=== PATIENT | female | born 1995 | race Caucasian/White ===

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

== ENCOUNTER 2017-02-14 21:03 | Observation (INO) | payer MEDICAID ==
[2017-02-14] MEDS ORDERED: NIFEdipine 30 MG Tab.ER PO ONE (21:56)
--- NOTE | 2017-02-14 21:56 | PCM.LDHP ---
L&D History of Present Illness - General Date of Service: 02/14/17 Admit Problem/Dx: Patient Status Order with Admit Dx/Problem 02/14/17 21:43 Patient Status [ADT] Routine Admission Diagnosis/Problem Admission Diagnosis/Problem Source of Information: Patient History Limitations: Reports: No Limitations - History of Present Illness Introduction:: 21-year-old at 35w3d presents with increased contractions for the past 2 hours. She states she had some cramping last night. After work today, the contractions were stronger and radiated to her back. Baby has been active. No vaginal bleeding or leaking of fluid. - Related Data Allergies/Adverse Reactions: Allergies Allergy/AdvReac Type Severity Reaction Status Date / Time No Known Allergies Allergy Verified 02/14/17 21:22 Home Medications: Home Meds Ferrous Sulfate [Iron] 325 mg PO DAILY 02/14/17 [History] #103/Iron Fumarate/Fa [ ] 1 each PO DAILY MDD 1 [History] Past Medical History HEENT History: Reports: None Cardiovascular History: Reports: None, Other (See Below) Other Cardiovascular History: had cardiac surgery for repair of " 2 holes in heart" when she was a child. 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: Musculoskeletal History: Reports: None Neurological History: Reports: None Psychiatric History: Reports: Anxiety, Depression Endocrine/Metabolic History: Reports: None Hematologic History: Reports: None Immunologic History: Reports: None Oncologic (Cancer) History: Reports: None Dermatologic History: Reports: None - Infectious Disease History Infectious Disease History: Reports: None - Past Surgical History Head Surgeries/Procedures: Reports: None Social & Family History - Family History Family Medical History: Noncontributory Respiratory: Reports: Other (See Below) (Lung cancer in paternal grandfather ( smoker)) - Tobacco Use Smoking Status *Q: Former Smoker Years of Tobacco use: 6 Packs/Tins Daily: 0.5 Used Tobacco, but Quit: Yes Month Tobacco Last Used: 03 - Caffeine Use Caffeine Use: Reports: Coffee, Energy Drinks, Soda, Tea - Recreational Drug Use Recreational Drug Use: No - Sexual History Sexual History: Reports: Sexually Active, Single Partner - Living Situation & Occupation Living situation: Reports: with Family H&P Review of Systems - Review of Systems: Review Of Systems: See Below General: Reports: No Symptoms HEENT: Reports: No Symptoms Pulmonary: Reports: No Symptoms Cardiovascular: Reports: No Symptoms Gastrointestinal: Reports: No Symptoms Genitourinary: Reports: No Symptoms Musculoskeletal: Reports: Back Pain Skin: Reports: No Symptoms Psychiatric: Reports: No Symptoms Neurological: Reports: No Symptoms Hematologic/Lymphatic: Reports: No Symptoms Immunologic: Reports: No Symptoms L&D Exam - Exam Exam: See Below - Vital Signs Vital Signs: Last Vital Signs Temp Pulse 81 02/14/17 21:22 Resp BP 133/86 02/14/17 21:22 Pulse Ox Weight: 72.575 kg - OB Specific Contraction Duration (sec): 30 Contraction Frequency (min): 3 Contraction Intensity: Moderate Movement: Active Heart Tones: Present Heart Tones per Min: 145 Heart Rate (FHR) Variability: Absent; Amplitude Undetectable Presentation: Vertex - Barrera Score Barrera Score Cervix Position: Posterior Barrera Score Consistency: Soft Barrera Score Effacement: 51-70% Barrera Score Dilation: 1-2 cm Barrera Score Infant's Station: -2 Barrera Score Total: 6 - Exam General: Alert, Oriented HEENT: Conjunctiva Clear, EACs Clear Lungs: Clear to Auscultation, Normal Respiratory Effort Cardiovascular: Regular Rate, Regular Rhythm Genitourinary: Vaginal discharge (Thick, white) Extremities: No Pedal Edema Skin: Warm, Dry, Intact - Problem List (1) contractions SNOMED Code(s): 869893563 ICD Code: O47.9 - FALSE LABOR, UNSPECIFIED Status: Acute Current Visit: Yes (2) UTI in SNOMED Code(s): 144419472 ICD Code: O23.40 - UNSP INFECTION OF URINARY TRACT IN , UNSP TRIMESTER Status: Acute Current Visit: Yes (3) Bacterial vaginosis SNOMED Code(s): 964315940 ICD Code: N76.0 - ACUTE VAGINITIS; B96.89 - OTH BACTERIAL AGENTS THE CAUSE OF DISEASES CLASSD ELSWHR Status: Acute Current Visit: Yes Problem List Initiated/Reviewed/Updated: Yes Orders Last 24hrs: Active Orders 24 hr Category Date Time Status Patient Status [ADT] Routine ADT 02/14/17 21:43 Ordered Monitoring [RC] CONTINUOUS Care 02/14/17 21:44 Ordered Up ad Мария [RC] ASDIRECTED Care 02/14/17 21:44 Ordered Vital Signs [RC] PER UNIT ROUTINE Care 02/14/17 21:43 Ordered Regular Diet [DIET] Diet 02/14/17 Breakfast Ordered CULTURE GROUP B STREP [RM] Routine Lab 02/14/17 21:46 Ordered UA W/MICROSCOPIC [URIN] Stat Lab 02/14/17 21:43 Ordered WET PREP [MYC] Routine Lab 02/14/17 21:46 Ordered Lactated Ringers [Ringers, Lactated] 1,000 ml Med 02/14/17 21:45 Ordered IV .BOLUS Resuscitation Status Routine Resus Stat 02/14/17 21:43 Ordered Medication Orders Lactated Ringer's (Ringers, Lactated) 1,000 mls @ 500 mls/hr IV .BOLUS LUTHER Assessment/Plan Comment:: 21-year-old at 35w3d with contractions, exacerbated by UTI and BV infections 1. Will admit for observation overnight. 2. 30 mg Nifedipine once. 20 mg nifedipine every 4 hours if BP >110/70 3. Augmentin every 12 hours for UTI 4. Flagyl 500 mg BID for 7 days 5. Reassess cervix in 4 hours or sooner if contractions increase Tawanna Fox MD
[2017-02-14] MEDS ORDERED: NIFEdipine 10 MG Cap PO ONE (22:01)
[2017-02-14] MEDS: metroNIDAZOLE 250 MG Tab PO SCH (22:43)
[2017-02-14] MEDS: Amoxicillin/Clavulanate K 875-125 MG Tab PO SCH (22:43)
[2017-02-14] MEDS: Lactated Ringers 1,000 ML IV SCH (22:45)
[2017-02-15] MEDS: NIFEdipine 10 MG Cap PO SCH ×3 (03:07→08:19)
[2017-02-15] MEDS: Lactated Ringers 1,000 ML IV SCH (06:14)
[2017-02-15] MEDS: Amoxicillin/Clavulanate K 875-125 MG Tab PO SCH (09:01)
[2017-02-15] MEDS: metroNIDAZOLE 250 MG Tab PO SCH (09:01)
--- NOTE | 2017-02-15 11:39 | PCM.DCSUM1 ---
Discharge Summary - Hospital Course Free Text/Narrative:: Admitted last night with contractions, UTI and BV - Discharge Data Discharge Date: 02/15/17 Discharge Disposition: Home, Self-Care 01 Condition: Good - Discharge Diagnosis/Problem(s) (1) contractions SNOMED Code(s): 023784279 ICD Code: O47.9 - FALSE LABOR, UNSPECIFIED Status: Acute Current Visit: Yes (2) UTI in SNOMED Code(s): 191968147 ICD Code: O23.40 - UNSP INFECTION OF URINARY TRACT IN , UNSP TRIMESTER Status: Acute Current Visit: Yes (3) Bacterial vaginosis SNOMED Code(s): 660950677 ICD Code: N76.0 - ACUTE VAGINITIS; B96.89 - OTH BACTERIAL AGENTS THE CAUSE OF DISEASES CLASSD ELSWHR Status: Acute Current Visit: Yes - Patient Summary/Data Operative Procedure(s) Performed: None Complications: None Consults: None Labs Pending at D/C: Urine culture Recommended Follow-up Testing/Procedures: None Planned Operative Procedure(s) after DC: None Hospital Course: See subjective section - Discharge Plan Home Medications: Home Meds Ferrous Sulfate [Iron] 325 mg PO DAILY 02/14/17 [History] #103/Iron Fumarate/Fa [ ] 1 each PO DAILY MDD 1 [History] Patient Handouts: Labor Information, [id number]-[id number], Amoxicillin; Clavulanic Acid tablets, Bacterial Vaginosis, Cdcy-yr-Bitx, Nifedipine capsules , Metronidazole tablets or capsules - Discharge Summary/Plan Comment DC Time >30 min.: No Discharge Summary/Plan Comment: Discharge home today. Continue Flagyl and Augmentin for 7 days. Will also prescribe nifedipine 10 mg every 6 hours for 8 days. Follow-up next week as previously scheduled. Reasons to return sooner were reviewed with the patient. Tawanna Fox MD - General Info Date of Service: 02/15/17 Subjective Update: Contractions have improved significantly. Woke up 1 time from pain. TOCO still shows irritability with irregular contractions. Patient did not receive nifedipine overnight due to lower BP readings. Will receive a dose this AM. No vaginal bleeding. Baby has been active. Functional Status: Reports: Tolerating Diet, Ambulating, Urinating. Denies: New Symptoms - Review of Systems General: Reports: No Symptoms HEENT: Reports: No Symptoms Pulmonary: Reports: No Symptoms Cardiovascular: Reports: No Symptoms Gastrointestinal: Reports: No Symptoms Genitourinary: Reports: No Symptoms Musculoskeletal: Reports: No Symptoms Skin: Reports: No Symptoms Neurological: Reports: No Symptoms - Patient Data Vitals - Most Recent: Last Vital Signs Temp 36.8 C 02/15/17 02:30 Pulse 80 02/15/17 06:30 Resp 16 02/15/17 01:00 BP 110/63 02/15/17 06:30 Pulse Ox Weight - Most Recent: 72.575 kg Lab Results - Last 24 hrs: Laboratory Results - last 24 hr 02/14/17 Range/Units 21:25 Urine Color Yellow (YELLOW) Urine Appearance Slightly cloudy (CLEAR) Urine pH 6.5 (5.0-9.0) Ur Specific [place] 1.020 (1.005-1.030) Urine Protein Negative (NEGATIVE) Urine Glucose (UA) Negative (NEGATIVE) Urine Ketones Negative (NEGATIVE) Urine Occult Blood Trace-intact H (NEGATIVE) Urine Nitrite Negative (NEGATIVE) Urine Bilirubin Negative (NEGATIVE) Urine Urobilinogen 1.0 (0.2-1.0) mg/dL Ur Leukocyte Esterase Trace H (NEGATIVE) Urine RBC 0-5 /HPF Urine WBC 10-20 H (0-5/HPF) /HPF Ur Epithelial Cells Moderate H /HPF Urine Bacteria Many H (0-FEW/HPF) /HPF Urine Mucus Many H /LPF FRAN Results - Last 24 hrs: Microbiology 02/14/17 21:35 Wet Prep - Final Vagina Med Orders - Current: Current Medications Amoxicillin/Clavulanate Potassium (Augmentin 875 Mg/125 Mg) 1 tab PO Q12HR [facility] Last Admin: 02/15/17 09:01 Dose: 1 tab Lactated Ringer's (Ringers, Lactated) 1,000 mls @ 500 mls/hr IV .BOLUS [facility] Last Admin: 02/15/17 06:14 Dose: 500 mls/hr Metronidazole (Metronidazole) 500 mg PO Q12HR [facility] Last Admin: 02/15/17 09:01 Dose: 500 mg Nifedipine (Procardia) 20 mg PO Q4H [facility] Last Admin: 02/15/17 08:19 Dose: 20 mg Discontinued Medications Nifedipine (Procardia Xl) 30 mg PO ONETIME ONE Stop: 02/14/17 21:57 Last Admin: 02/14/17 22:27 Dose: Not Given Nifedipine (Procardia) 30 mg PO ONETIME ONE Stop: 02/14/17 22:02 Last Admin: 02/14/17 22:43 Dose: 30 mg - Exam General: Reports: Alert, Oriented Lungs: Reports: Clear to Auscultation, Normal Respiratory Effort Cardiovascular: Reports: Regular Rate, Regular Rhythm, No Murmurs (Female) Exam: Cervical Dilatation (/-2 (unchanged)) Extremities: No Pedal Edema Skin: Reports: Warm, Dry, Intact *Q Meaningful Use (DIS) - VTE *Q VTE Criteria *Q: - Stroke *Q Stroke Criteria *Q: - AMI *Q AMI Criteria *Q:
[2017-02-15 13:13] VITALS: BP 95/48
== END 2017-02-15 12:30 | disposition home or self-care (01) ==
LOC: DL.OBCHECK 21:03 → DL.OB 21:43
PROVIDERS: ADMIT Family Medicine; ATTEND Family Medicine
DX: O47.9 False labor, unspecified (principal); O23.43 Unspecified infection of urinary tract in pregnancy, third trimester; B96.89 Other specified bacterial agents as the cause of diseases classified elsewhere; O99.343 Other mental disorders complicating pregnancy, third trimester; F41.8 Other specified anxiety disorders; J45.909 Unspecified asthma, uncomplicated; Z3A.35 35 weeks gestation of pregnancy; Z79.899 Other long term (current) drug therapy; Z87.891 Personal history of nicotine dependence
CPT/HCPCS: 81001; 87081; 87210; A9270; J7120; 96360; 96361; G0378